=== PATIENT | female | born 1985 | race Caucasian/White ===

== ENCOUNTER 2020-03-21 22:09 | Emergency (ER) | payer MEDICAID ==
[~2020-03-21] VITALS: Ht 167.6 cm; Wt 70.0 kg
[2020-03-21 22:15] VITALS: BP 130/80
== END 2020-03-22 00:39 | disposition left against medical advice (07) ==
LOC: ER 22:09
DX: Z53.21 Procedure and treatment not carried out due to patient leaving prior to being seen by health care provider (principal)